=== PATIENT | male | born 1955 | race Caucasian/White ===

== ENCOUNTER 2017-12-30 13:44 | Emergency (ER) | payer BC ==
[2017-12-30] MEDS ORDERED: IPRATROPIUM-ALBUTEROL 3 ML NEB INHALATION STA (14:27)
[2017-12-30] MEDS ORDERED: methylPREDNISolone SOD SUCCI 125 MG/2 ML VIAL IV STA (14:27)
[2017-12-30] MEDS ORDERED: ALBUTEROL NEBULIZED 2.5 MG/3 ML INHALATION STA (14:27)
--- NOTE | 2017-12-30 14:42 | ED ---
General Adult HPI - General Chief complaint: Upper Respiratory Infection Stated complaint: Chest congestion Time Seen by Provider: 12/30/17 14:13 Source: patient Mode of arrival: ambulatory Limitations: no limitations - History of Present Illness Initial comments: 62 years old male been short-winded for last 3 weeks, been coughing him feel congested in the chest, he went to urgent care center they did the x-ray did notice some infiltrate in the referred him to [facility] emergency department for further evaluation and management. He feels bit palpitation feels that heart rate is faster and is oxygen level is low his O2 sat was 90% on arrival, he does have a history of smoking for the last 35 years. He does complain about mild chest pain when he takes a deep breath no fever no chills does spit up some phlegm. He does have a history of hypertension been compliant with his medications he denies any coronary artery disease at this point. No abdominal pain no frequency urgency dysuria no symptoms of TIA or CVA - Related Data Home Medications Medication Instructions Recorded Confirmed Aspirin EC [Ecotrin Low Dose] 162 mg PO DAILY 12/30/17 12/30/17 Carvedilol [Coreg] 6.25 mg PO BID 12/30/17 12/30/17 Fexofenadine HCl [Caterina Allergy] 180 mg PO DAILY 12/30/17 12/30/17 Lisinopril-Hctz 20-12.5 mg 1 tab PO DAILY 12/30/17 12/30/17 [Zestoretic 20-12.5] Montelukast [Singulair] 10 mg PO HS 12/30/17 12/30/17 Multivitamins, Thera [Multivitamin 1 tab PO DAILY 12/30/17 12/30/17 (formulary)] Simvastatin [Zocor] 10 mg PO HS 12/30/17 12/30/17 Previous Rx's Medication Instructions Recorded Levofloxacin [Levaquin] 750 mg PO DAILY 3 Days #5 tab 12/30/17 predniSONE 50 mg PO DAILY #5 tablet 12/30/17 Allergies Allergy/AdvReac Type Severity Reaction Status Date / Time No Known Allergies Allergy Verified 12/30/17 14:16 Review of Systems ROS Statement: Those systems with pertinent positive or pertinent negative responses have been documented in the HPI. ROS Other: All systems not noted in ROS Statement are negative. 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 Skin: Skin is warm and dry and no rashes or lesions are noted. Eye: Pupils are equal, round and reactive to light, extra-ocular movements are intact; there is normal conjunctiva bilaterally. Ears, nose, mouth and throat: There are moist mucous membranes and no oral lesions. Neck: The neck is supple, there is no tenderness Cardiovascular: There is a regular rate and rhythm. No murmur, rub or gallop is appreciated. Noticed tachycardia Respiratory: To auscultation bilateral, and consistent with a moderate COPD noticed some crackles as well at the bases Gastrointestinal: Soft, non-distended, non-tender abdomen without masses or organomegaly noted. There is no rebound or guarding present. Bowel sounds are unremarkable. Back: There is no tenderness to palpation in the midline. There is no obvious deformity. Musculoskeletal: Normal ROM, no tenderness, There is no pedal edema. There is no calf tenderness or swelling. No cords were appreciated. Neurological: CN II-XII intact, Cranial nerves III through XII are intact. There are no obvious motor or sensory deficits. Coordination appears grossly intact. Speech is normal. Psychiatric: Cooperative, appropriate mood & affect, normal judgment. Limitations: no limitations Course Vital Signs 12/30/17 12/30/17 12/30/17 13:55 14:10 14:54 Temperature 97.7 F Pulse Rate 112 H 108 H Respiratory 17 Rate Blood Pressure 152/82 O2 Sat by Pulse 92 L 90 L Oximetry 12/30/17 12/30/17 12/30/17 15:08 15:19 16:55 Temperature 98.7 F 98 F Pulse Rate 108 H 113 H 70 Respiratory 20 18 Rate Blood Pressure 169/81 151/71 O2 Sat by Pulse 91 L 96 Oximetry Patient was reassessed at 1530 EKG along with the labs noticed d-dimer was quite elevated considering his risk factors and his clinical picture of tachycardia and tachypnea will proceed with the CT angiogram to rule out pulmonary embolus was discussed with the patient and he agreed to proceed with the CAT scan. - Reevaluation(s) Reevaluation #1: Vision was reassessed imaging were reviewed those are discussed with the patient and the on-call physician Dr. Henson, there is a question of for suspicious finding or question of mass on the long patient will continue the antibiotic and steroids for her pneumonia he does have a history of COPD as well as question of mass is concerned she be referred to Dr. Eckert irrigation district manager 12/30/17 18:15 EKG Findings - EKG Comments: EKG Findings:: G is sinus tachycardia ventricular rate of 110 WA interval 146 QRS duration is 94 QT/QTc is 340/460 review of this EKG does reveal a T-wave inversion in lead [address] elevation noticed R no significant ST segment depression noticed Medical Decision Making - Lab Data Result diagrams: 12/30/17 14:25 12/30/17 14:25 Lab Results 12/30/17 12/30/17 12/30/17 Range/Units 14:25 14:25 14:25 WBC 10.1 (3.8-10.6) k/uL RBC 4.93 (4.30-5.90) m/uL Hgb 14.8 (13.0-17.5) gm/dL Hct 43.2 (39.0-53.0) % MCV 87.5 (80.0-100.0) fL MCH 30.0 (25.0-35.0) pg MCHC 34.3 (31.0-37.0) g/dL RDW 14.9 (11.5-15.5) % Plt Count 351 (150-450) k/uL Neutrophils % 90 % Lymphocytes % 7 % Monocytes % 2 % Eosinophils % 1 % Basophils % 0 % Neutrophils # 9.1 H (1.3-7.7) k/uL Lymphocytes # 0.7 L (1.0-4.8) k/uL Monocytes # 0.2 (0-1.0) k/uL Eosinophils # 0.1 (0-0.7) k/uL Basophils # 0.0 (0-0.2) k/uL Poikilocytosis Slight PT (9.0-12.0) sec INR (<1.2) APTT (22.0-30.0) sec D-Dimer (<0.60) mg/L FEU Sodium 141 (137-145) mmol/L Potassium 4.2 (3.5-5.1) mmol/L Chloride 104 (98-107) mmol/L Carbon Dioxide 26 (22-30) mmol/L Anion Gap 11 mmol/L BUN 13 (9-20) mg/dL Creatinine 0.80 (0.66-1.25) mg/dL Est GFR (MDRD) Af Amer >60 (>60 ml/min/1.73 sqM) Est GFR (MDRD) Non-Af >60 (>60 ml/min/1.73 sqM) Glucose 136 H (74-99) mg/dL Calcium 9.8 (8.4-10.2) mg/dL Troponin I (0.000-0.034) ng/mL Influenza Type A RNA Not Detected (Not Detectd) Influenza Type B (PCR) Not Detected (Not Detectd) 12/30/17 12/30/17 Range/Units 14:25 14:25 WBC (3.8-10.6) k/uL RBC (4.30-5.90) m/uL Hgb (13.0-17.5) gm/dL Hct (39.0-53.0) % MCV (80.0-100.0) fL MCH (25.0-35.0) pg MCHC (31.0-37.0) g/dL RDW (11.5-15.5) % Plt Count (150-450) k/uL Neutrophils % % Lymphocytes % % Monocytes % % Eosinophils % % Basophils % % Neutrophils # (1.3-7.7) k/uL Lymphocytes # (1.0-4.8) k/uL Monocytes # (0-1.0) k/uL Eosinophils # (0-0.7) k/uL Basophils # (0-0.2) k/uL Poikilocytosis PT 10.2 (9.0-12.0) sec INR 1.0 (<1.2) APTT 24.5 (22.0-30.0) sec D-Dimer 1.15 H (<0.60) mg/L FEU Sodium (137-145) mmol/L Potassium (3.5-5.1) mmol/L Chloride (98-107) mmol/L Carbon Dioxide (22-30) mmol/L Anion Gap mmol/L BUN (9-20) mg/dL Creatinine (0.66-1.25) mg/dL Est GFR (MDRD) Af Amer (>60 ml/min/1.73 sqM) Est GFR (MDRD) Non-Af (>60 ml/min/1.73 sqM) Glucose (74-99) mg/dL Calcium (8.4-10.2) mg/dL Troponin I <0.012 (0.000-0.034) ng/mL Influenza Type A RNA (Not Detectd) Influenza Type B (PCR) (Not Detectd) Disposition Clinical Impression: COPD exacerbation, Pneumonia, Pleuritic chest pain Disposition: HOME SELF-CARE Instructions: Pneumonia (ED) Prescriptions: Levofloxacin [Levaquin] 750 mg PO DAILY 3 Days #5 tab predniSONE 50 mg PO DAILY #5 tablet Referrals: Malcolm Ramirez MD [Primary Care Provider] - 1-2 days Farhad Dixon MD [STAFF PHYSICIAN] - 1-2 days
[2017-12-30 15:10] LABS: D-Dimer 1.15 mg/L FEU (<0.60); Partial Thromboplastin Time 24.5 sec (22.0-30.0); Prothrombin Time 10.2 sec (9.0-12.0)
[2017-12-30 15:13] LABS: Anion Gap 11 mmol/L; Blood Urea Nitrogen 13 mg/dL (9-20); Calcium 9.8 mg/dL (8.4-10.2); Carbon Dioxide 26 mmol/L (22-30); Chloride 104 mmol/L (98-107); Glucose 136 mg/dL (74-99); Potassium 4.2 mmol/L (3.5-5.1); Sodium 141 mmol/L (137-145)
[2017-12-30 15:14] LABS: Basophils % (A) 0 %; Eosinophils # (A) 0.1 k/uL (0-0.7); Eosinophils % (A) 1 %; HCT 43.2 % (39.0-53.0); HGB 14.8 gm/dL (13.0-17.5); Lymphocytes # (A) 0.7 k/uL (1.0-4.8); Lymphocytes % (A) 7 %; MCHC 34.3 g/dL (31.0-37.0); MCV 87.5 fL (80.0-100.0); Mean Platelet Volume 6.4; Monocytes # (A) 0.2 k/uL (0-1.0); Monocytes % (A) 2 %; Neutrophils # (A) 9.1 k/uL (1.3-7.7); Neutrophils % (A) 90 %; Platelet Count 351 k/uL (150-450); Poikilocytosis Slight; RBC 4.93 m/uL (4.30-5.90); RDW 14.9 % (11.5-15.5); WBC 10.1 k/uL (3.8-10.6)
[2017-12-30] MEDS ORDERED: RX INFO: IV CONTRAST WAS GIVEN 1 EACH MISC MISCELLANE PRN (15:23)
--- NOTE | 2017-12-30 16:32 | CT ---
EXAMINATION TYPE: CT chest angio for PE DATE OF EXAM: 12/30/2017 COMPARISON: NONE HISTORY: Chest congestion and pain x3 weeks. CT DLP: 880 mGycm. Automated Exposure Control for Dose Reduction was Utilized. CONTRAST: CTA scan of the thorax is performed with IV Contrast, patient injected with 100ml mL of Omnipaque 350 , pulmonary embolism protocol. MIP Images are created on CT scanner and reviewed. FINDINGS: Exam is suboptimal as degraded by respiratory motion artifact which limits evaluation for s ubcentimeter nodularity. LUNGS: Low lung volumes are present. There is groundglass opacity with peripheral consolidation invol ving the right lower lobe. There is suspicious nodular consolidation medial right lower lobe measurin g 2.0 x 1.5 cm axial image 95. Left lung is clear. No significant pleural effusion or pneumothorax is seen bilaterally. Tracheobronchial tree is patent. MEDIASTINUM: There is suboptimal bolus with heterogeneity but there is no convincing CT evidence for central pulmonary embolism. Smaller segmental and subsegmental PE cannot be excluded on this exam. Th ere is suspected enlarged right hilar lymph node measuring 2.0 x 1.3 cm axial image 84. There is [place] 1.0 x 1.0 cm lymph node right paratracheal region axial image 30. No cardiomegaly or pericardi al effusion is seen. Coronary artery calcification is present which is noted marker for coronary emigdio ry disease. OTHER: Visualized liver is hypodense consistent with fatty infiltration. Adrenal glands are diffusely thickened and hypodense consistent with benign lipid rich hyperplasia. A 1 cm splenule anterior sple roman hilum axial image 154 is noted. There is moderate multilevel spurring in the thoracic spine seen IMPRESSION: 1. Suboptimal study without large central pulmonary embolism, smaller segmental and subsegmental PE c annot be excluded on this exam. 2. Irregular infiltrate and consolidation right lower lobe, possible pneumonia. Correlate clinically. Area of nodularity medially right lower lobe is noted with suspected right infrahilar adenopathy. Ne oplasm cannot be excluded. Follow-up CT exam after treatment advised. If lesion persists further inve stigation with PET CT would be warranted.
[2017-12-30 17:03] VITALS: RESP 18
[2017-12-30 18:34] VITALS: BP 151/67; PULSE 71; TEMP 98.4
== END 2017-12-30 18:34 | disposition home or self-care (01) ==
LOC: EC 13:44
DX: J44.1 Chronic obstructive pulmonary disease with (acute) exacerbation (principal); J18.9 Pneumonia, unspecified organism; R07.81 Pleurodynia; R00.0 Tachycardia, unspecified; R06.82 Tachypnea, not elsewhere classified; R79.1 Abnormal coagulation profile; E78.5 Hyperlipidemia, unspecified; I10 Essential (primary) hypertension; F17.200 Nicotine dependence, unspecified, uncomplicated; Z79.82 Long term (current) use of aspirin; Z79.899 Other long term (current) drug therapy; Z53.8 Procedure and treatment not carried out for other reasons
CPT/HCPCS: 36415; 94640; 93005; 85379; 80048; 84484; 85025; 85610; 85730; 87502; 71275; 99284; Q9967

== ENCOUNTER 2021-02-15 15:21 | Emergency (ER) | payer BC, OTHER ==
[2021-02-15 15:34] VITALS: TEMP 98
[2021-02-15] MEDS ORDERED: RX INFO: IV CONTRAST WAS GIVEN 1 EACH MISC MISCELLANE PRN (15:50)
[2021-02-15] MEDS ORDERED: DIPH,PERTUS(ACELL)TETVAC-LF 0.5 ML VIAL IM ONE (15:51)
[2021-02-15 16:11] LABS: Basophils # (A) 0.1 k/uL (0-0.2); Basophils % (A) 0 %; Eosinophils # (A) 0.4 k/uL (0-0.7); Eosinophils % (A) 3 %; HCT 42.7 % (39.0-53.0); Lymphocytes # (A) 0.8 k/uL (1.0-4.8); Lymphocytes % (A) 6 %; MCH 31.7 pg (25.0-35.0); MCHC 35.2 g/dL (31.0-37.0); Mean Platelet Volume 6.6; Monocytes # (A) 0.5 k/uL (0-1.0); Monocytes % (A) 4 %; Neutrophils # (A) 12.5 k/uL (1.3-7.7); Neutrophils % (A) 87 %; Platelet Count 273 k/uL (150-450); RBC 4.74 m/uL (4.30-5.90); RDW 14.2 % (11.5-15.5); WBC 14.3 k/uL (3.8-10.6)
[2021-02-15 16:19] LABS: Albumin 4.2 g/dL (3.5-5.0); Calcium 9.5 mg/dL (8.4-10.2); Potassium 3.7 mmol/L (3.5-5.1); Total Protein 7.6 g/dL (6.3-8.2)
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
[2021-02-15 17:02] VITALS: RESP 20
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
[2021-02-15 18:55] VITALS: BP 121/78; PULSE 110
== END 2021-02-15 18:36 | disposition home or self-care (01) ==
LOC: EC 15:21
DX: S10.93XA Contusion of unspecified part of neck, initial encounter (principal); R73.9 Hyperglycemia, unspecified; I10 Essential (primary) hypertension; E78.5 Hyperlipidemia, unspecified; F17.200 Nicotine dependence, unspecified, uncomplicated; Z23 Encounter for immunization; Z79.82 Long term (current) use of aspirin; Z79.51 Long term (current) use of inhaled steroids; Z79.899 Other long term (current) drug therapy; Z79.02 Long term (current) use of antithrombotics/antiplatelets; V89.2XXA Person injured in unspecified motor-vehicle accident, traffic, initial encounter; Y92.410 Unspecified street and highway as the place of occurrence of the external cause
CPT/HCPCS: 36415; 93005; 80053; 85025; 73130; 73562; 72125; 70450; 71260; 70498; 90715; 99285; 90471; Q9967

== ENCOUNTER → 2023-03-10 | Outpatient (CLI) | payer BC, OTHER ==
--- NOTE | 2023-03-10 10:28 | CT ---
EXAMINATION TYPE: CT chest wo/w con DATE OF EXAM: 03/10/2023 COMPARISON: Prior CT February 15, 2021 and older study December 30, 2017 HISTORY: abnormal lung finding CT DLP: 1292.4 mGycm. Automated Exposure Control for Dose Reduction was Utilized. TECHNIQUE: CT scan of the thorax is performed following without and with IV Contrast, patient inject ed with 70 mL of Isovue 300. FINDINGS: LUNGS: The lungs remaining grossly clear, there is no concerning new Greater than 5 mm parenchymal mass or nodule identified. No suspicious focal consolidation. There is no pleural effusion or pneumothorax seen. The tracheobronchial tree is patent. MEDIASTINUM: There are no new greater than 1 cm hilar or mediastinal lymph nodes. No cardiomegaly o r pericardial effusion is seen. Coronary artery calcification is redemonstrated. There is calcificat ion at level of the aortic valve redemonstrated OTHER: Visualized portion of Liver remains low dense consistent with diffuse fatty infiltration. Scol iotic curvature with multilevel spurring in the spine is redemonstrated. IMPRESSION: No suspicious acute or chronic pulmonary process. No suspicious mass or adenopathy. No si gnificant change from most recent CT.
== END | disposition home or self-care (01) ==
LOC: RADCTMAIN 07:49
PROVIDERS: ATTEND Internal Medicine Geriatric Medicine
DX: R91.1 Solitary pulmonary nodule (principal)
CPT/HCPCS: 82565; 84520; 71270; 36415; Q9967

== ENCOUNTER 2025-05-03 21:06 | Emergency (ER) | payer BC, MEDICARE ==
--- NOTE | 2025-05-03 21:53 | ED ---
Fall HPI - General Chief Complaint: Fall Stated Complaint: Fall Time Seen by Provider: 05/03/25 21:50 Source: patient, RN notes reviewed Mode of arrival: ambulatory - History of Present Illness Initial Comments: 70-year-old male presenting for "my right knee gave out". States he was walking in his garage when he went to take a step onto his right leg and his knee gave out which caused him to fall to the ground on his knees. States he pulled himself back up by his arms. Denies knee pain. Denies head injury or blood thinners. Denies dizziness, chest pain, shortness of breath, abdominal pain, numbness, tingling, or weakness. - Related Data Home Medications Medication Instructions Recorded Confirmed Aspirin EC [Ecotrin Low Dose] 81 mg PO DAILY 12/30/17 02/15/21 Fexofenadine HCl [Caterina Allergy] 180 mg PO DAILY 12/30/17 02/15/21 Lisinopril-Hctz 20-12.5 mg 1 tab PO DAILY 12/30/17 02/15/21 [Zestoretic 20-12.5] Montelukast [Singulair] 10 mg PO DAILY 12/30/17 02/15/21 Multivitamins, Thera [Multivitamin 1 tab PO DAILY 12/30/17 02/15/21 (formulary)] Simvastatin [Zocor] 10 mg PO DAILY 12/30/17 02/15/21 carvediloL [Coreg] 6.25 mg PO BID 12/30/17 02/15/21 Furosemide [Lasix] 40 mg PO DAILY 02/15/21 02/15/21 Potassium Chloride ER [K-Dur 10] 10 meq PO DAILY 02/15/21 02/15/21 Allergies Allergy/AdvReac Type Severity Reaction Status Date / Time No Known Allergies Allergy Verified 05/03/25 21:11 Review of Systems ROS Statement: Those systems with pertinent positive or pertinent negative responses have been documented in the HPI. ROS Other: All systems not noted in ROS Statement are negative. Past Medical History Past Medical History: Hyperlipidemia, Hypertension Additional Past Medical History / Comment(s): allergies History of Any Multi-Drug Resistant Organisms: None Reported Past Surgical History: Orthopedic Surgery Additional Past Surgical History / Comment(s): right knee, vascular surgery on right leg Past Psychological History: No Psychological Hx Reported Smoking Status: Current every day smoker Past Alcohol Use History: Daily Past Drug Use History: None Reported General Exam Limitations: no limitations General appearance: alert, in no apparent distress Head exam: Present: atraumatic, normocephalic, normal inspection Right Upper Leg exam: Present: normal inspection, full ROM. Absent: tenderness Knee exam: Present: full ROM, abrasion. Absent: normal inspection (There is a mild abrasion to anterior right knee), tenderness, swelling, deformity, erythema Lower Leg exam: Present: normal inspection, full ROM. Absent: tenderness, swelling Ankle exam: Present: normal inspection, full ROM. Absent: tenderness, swelling Foot/Toe exam: Present: normal inspection, full ROM. Absent: tenderness, swelling Neurovascular tendon exam: Present: no vascular compromise. Absent: pulse deficit, abnormal cap refill, motor deficit, sensory deficit Neurological exam: Present: alert, oriented X3 Psychiatric exam: Present: normal affect, normal mood Skin exam: Present: warm, dry, intact, normal color. Absent: rash Course Vital Signs 05/03/25 05/03/25 21:10 22:40 Temperature 98.5 F 98.4 F Pulse Rate 123 H 127 H Respiratory 18 20 Rate Blood Pressure 118/72 111/79 O2 Sat by Pulse 96 97 Oximetry Medical Decision Making - Medical Decision Making Was pt. sent in by a medical professional or institution ([facility], CONTINUITY EDITOR, urgent care, hospital, or custodial...) When possible be specific @ -No Did you speak to anyone other than the patient for history (EMS, parent, family, police, friend...)? What history was obtained from this source @ -No Did you review nursing and triage notes (agree or disagree)? Why? @ -I reviewed and agree with nursing and triage notes Were old charts reviewed (outside hosp., previous admission, EMS record, old EKG, old radiological studies, urgent care reports/EKG's, custodial records)? Report findings @ -Reviewed vital signs from previous ER visits which showed heart rate in the 110s beats per minute Differential Diagnosis (chest pain, altered mental status, abdominal pain women, abdominal pain men, vaginal bleeding, weakness, fever, dyspnea, syncope, headache, dizziness, GI bleed, back pain, seizure, CVA, palpatations, mental health, musculoskeletal)? @ -Differential Musculoskeletal Muscular strain, contusion, ligament sprain, fracture, arthritis, septic arthr itis, bursitis, cellulitis, muscle spasm, nerve compression, DVT, arterial occlusion, herpes zoster, electrolyte abnormality, tumor.... This is not meant to be in all inclusive list EKG interpreted by me (3pts min.). @ -None X-rays interpreted by me (1pt min.). @ -X-ray right knee reveals no acute process CT interpreted by me (1pt min.). @ -None done U/S interpreted by me (1pt. min.). @ -None done What testing was considered but not performed or refused? (CT, X-rays, U/S, labs)? Why? @ -None What meds were considered but not given or refused? Why? @ -None Did you discuss the management of the patient with other professionals (professionals i.e. , PA, CONTINUITY EDITOR, lab, RT, psych nurse, social worker aide, residential real estate assistant, teacher, executive officer special warfare team, telephonic case manager)? Give summary @ -No Was smoking cessation discussed for >3mins.? @ -No Was critical care preformed (if so, how long)? @ -No Were there social determinants of health that impacted care today? How? (Homelessness, low income, unemployed, alcoholism, drug addiction, transportation, low edu. Level, literacy, decrease access to med. care, nursing home, rehab)? @ -No Was there de-escalation of care discussed even if they declined (Discuss DNR or withdrawal of care, Hospice)? DNR status @ -No What co-morbidities impacted this encounter? (DM, HTN, Smoking, COPD, CAD, Cancer, CVA, ARF, Chemo, Hep., AIDS, mental health diagnosis, sleep apnea, morbid obesity)? @ -None Was patient admitted / discharged? Hospital course, mention meds given and route, prescriptions, significant lab abnormalities, going to OR and other pertinent info. @ -Discharge. 70-year-old male presenting for "my right knee gave out". Denies knee pain. Neurovascularly intact. X-ray right knee reveals no acute process. Patient has tachycardia of 123 bpm which appears to be chronic in nature compared to previous ER visits. EKG showed sinus tachycardia with first-degree AV block. Advised patient to follow-up with his PCP regarding tachycardia. Patient can be safely discharged home with return precautions and close follow- up care. Case was discussed with my ED attending Dr. Mccormick Undiagnosed new problem with uncertain prognosis? @ -No Drug Therapy requiring intensive monitoring for toxicity (Heparin, Nitro, Insulin, Cardizem)? @ -No Were any procedures done? @ -No Diagnosis/symptom? @ -Right knee arthritis, sinus tachycardia Acute, or Chronic, or Acute on Chronic? @ -Acute Uncomplicated (without systemic symptoms) or Complicated (systemic symptoms)? @ -Uncomplicated Side effects of treatment? @ -No Exacerbation, Progression, or Severe Exacerbation? @ -No Poses a threat to life or bodily function? How? (Chest pain, [place], [place], pneumonia, PE, COPD, DKA, ARF, appy, cholecystitis, CVA, Diverticulitis, Homicidal, Suicidal, threat to staff... and all critical care pts) @ -No - EKG Data -: EKG Interpreted by Me EKG Comments: EKG reveals sinus tachycardia with first-degree AV block. Ventricular rate 119 bpm, IA interval 215, QRS duration 102, QT/QTc 347/418 Disposition Clinical Impression: Arthritis of right knee, Sinus tachycardia Disposition: HOME SELF-CARE Condition: Stable Instructions (If sedation given, give patient instructions): Arthritis (ED) Additional Instructions: Please follow-up with your PCP regarding high heart rate. You may also wear your knee brace to improve symptoms. Please return to the Emergency Department if symptoms worsen or any other concerns. Is patient prescribed a controlled substance at d/c from ED?: No Referrals: Malcolm Ramirez MD [Primary Care Provider] - 1-2 days Time of Disposition: 22:35
--- NOTE | 2025-05-03 22:21 | XR ---
EXAMINATION TYPE: XR knee complete RT DATE OF EXAM: 05/03/2025 10:02 PM INDICATION: Patient age:Male; 70 years old; Reason for study: right knee injury; PHH. pain COMPARISON: None. TECHNIQUE: The Right knee(s) was examined in Frontal, lateral and oblique projections. FINDINGS: No evidence of any acute osseous pathology, soft tissue swelling, or joint effusion is no serafin. Mild joint space narrowing of the medial tibiofemoral joint. Vascular sclerosis. IMPRESSION: 1. No acute osseous pathology. 2. 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 [facility], , 05/03/2025 10:19 PM
[2025-05-03 22:47] VITALS: BP 111/79; PULSE 127; RESP 20; TEMP 98.4
== END 2025-05-03 23:03 | disposition home or self-care (01) ==
LOC: EC 21:06
DX: M17.11 Unilateral primary osteoarthritis, right knee (principal); R00.0 Tachycardia, unspecified; F17.200 Nicotine dependence, unspecified, uncomplicated; W19.XXXA Unspecified fall, initial encounter; Y93.01 Activity, walking, marching and hiking
CPT/HCPCS: 93005; 99283